=== PATIENT | female | born 1975 | race African-American/Black ===

== ENCOUNTER 2021-08-19 16:56 | Emergency (ER) | payer OTHER ==
[~2021-08-19] VITALS: Ht 165.1 cm; Wt 172.4 kg
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
[2021-08-19] MEDS ORDERED: ACETAMINOPHEN ES 500 MG TABLET PO ONE (17:30)
[2021-08-19] MEDS ORDERED: ACETAMINOPHEN ES 500 MG TABLET ONE (18:01)
[2021-08-19] MEDS ORDERED: CYCL10TA9 PO (18:22)
[2021-08-19] MEDS ORDERED: IBUP-1955 PO (18:22)
[2021-08-19 18:32] VITALS: BP 128/77
--- NOTE | 2021-08-19 18:33 | NUR ---
Patient discharged to home in stable condition. Written and verbal after care instructions given. Patient verbalizes understanding of instruction.
== END 2021-08-19 18:32 | disposition home or self-care (01) ==
LOC: ER 16:58
DX: R07.89 Other chest pain (principal); M54.2 Cervicalgia; M54.6 Pain in thoracic spine; I10 Essential (primary) hypertension; Z79.899 Other long term (current) drug therapy; V49.49XA Driver injured in collision with other motor vehicles in traffic accident, initial encounter; Y93.89 Activity, other specified; Y92.413 State road as the place of occurrence of the external cause; Y99.8 Other external cause status
CPT/HCPCS: 71045; 72125; 99284; L0172